=== PATIENT | female | born 2000 | race Caucasian/White ===

== ENCOUNTER → 2020-11-04 | Outpatient (CLI) | payer BC ==
--- NOTE | 2020-11-04 12:16 | RAD ---
EXAM: Renal sonogram. HISTORY: Recurrent UTIs. TECHNIQUE: Sonographic imaging of the kidneys and bladder was performed. COMPARISON: None. FINDINGS: The kidneys are normal in size. No solid or cystic renal lesion is seen. There is no hydron ephrosis. The urinary bladder is unremarkable. IMPRESSION: Unremarkable renal sonogram. Electronically signed by: Abiola Daniel MD (11/04/2020 12:13 PM) [id number]
== END ==
LOC: US 09:56
PROVIDERS: ATTEND Urology
DX: J32.8 Other chronic sinusitis (principal); N39.0 Urinary tract infection, site not specified
CPT/HCPCS: 76770